=== PATIENT | male | born 1960 | race Caucasian/White ===

== ENCOUNTER 2022-11-03 17:10 | Emergency (ER) | payer OTHER, SELFPAY ==
[2022-11-03 17:34] VITALS: BP 117/72; PULSE 108; RESP 18; TEMP 36.7; O2SAT 94; BMI 28.3
--- NOTE | 2022-11-03 17:34 | ED.GENADULT ---
HPI - General Adult General Stated complaint: Insect bite on back Related Data Allergies Allergy/AdvReac Type Severity Reaction Status Date / Time No Known Allergies Allergy Verified 11/03/22 17:33 Course Course Course Narrative: This is an RME: Additional HPI, ROS, PE not included below will be deferred to primary provider. This is a 61-year-old male, with a past medical history of colon cancer not currently on chemotherapy (last treatment Apr 2022), presenting to the emergency department for evaluation insect bite to his right upper shoulder. Large, draining abscess vs cellulitis to right upper shoulder. VSS. Patient believes that he was bit by something and over the course of this last week it has been increasing in size, pain, redness and now is draining. Plan: obtain basic labs
--- NOTE | 2022-11-03 19:19 | MHC.EDTECH ---
PATIENT BLOOD DRAWN AND SENT TO LAB .
[2022-11-03 19:25] LABS: MANUAL DIFF FLAG NO
[2022-11-03 19:33] LABS: Basophils Percent Auto 0.4 % (0-2); Eosinophils Absolute Auto 0.1 X10*3/uL (0.0-0.4); Hematocrit 35.7 % (42.0-52.0); Hemoglobin 11.5 g/dl (14.0-18.0); Imm Gran Abs Auto 0.13 X10*3/uL (0.00-0.03); Imm Gran Pct Auto 1.8 % (0.0-0.4); Lymphocytes Absolute Auto 1.2 X10*3/uL (1.2-4.9); Lymphocytes Percent Auto 16.3 % (20-40); Mean Corpuscular HGB Conc 32.2 g/dl (31.0-36.0); Mean Corpuscular Hemoglobin 28.2 pg (27.0-33.0); Mean Corpuscular Volume 87.5 fL (80.0-98.0); Mean Platelet Volume 10.6 fL (9.4-12.4); Monocytes Absolute Auto 1.2 X10*3/uL (0.1-1.2); Monocytes Percent Auto 16.6 % (2-11); Neutrophils Absolute Auto 4.4 x10*3/uL (2.0-8.3); Neutrophils Percent Auto 62.9 % (45-73); Platelet Count 247 X10*3/uL (160-400); Red Blood Count 4.08 X10*6/uL (4.60-5.80); Red Cell Distribution Width 16.4 % (11.0-16.0)
[2022-11-03 19:38] LABS: Alanine Aminotransferase 22 U/L (0-40); Alkaline Phosphatase 57 U/L (39-117); Anion Gap 16 (12-20); Aspartate Amino Transferase 17 U/L (5-37); Bilirubin Direct < 0.2 mg/dL (0.0-0.5); Bilirubin Total 0.1 mg/dL (0.0-1.0); Blood Urea Nitrogen 26 mg/dL (9-16); Calcium 9.8 mg/dL (8.4-10.2); Carbon Dioxide 25 mmol/L (22-29); Chloride 106 mmol/L (96-108); Creatinine Clr Calc Pharmacy 83.6; Estimated Glomerular Filt Rate > 60; Glucose Random 123 mg/dL (60-115); Potassium 3.2 mmol/L (3.3-5.1); Sodium 144 mmol/L (135-145); Total Protein 6.9 g/dL (6.5-8.0)
--- NOTE | 2022-11-03 20:30 | ED.GENADULT ---
HPI - General Adult General Chief complaint: General Medical Stated complaint: Insect bite on back Time Seen by Provider: 11/03/22 20:04 History of Present Illness HPI narrative: Patient is a 61-year-old male with a history of colon cancer in the remote past. No history of diabetes. Had a insect bite to the right shoulder area. 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 Been sitting on that home. Notice increasing redness and discharge home the wound. Came to the ED for further evaluation. No fever no chills. No systemic complaints. Positive drainage from the wound. Symptoms been ongoing for the last week. Related Data Previous Rx's Medication Instructions Recorded doxycycline hyclate 100 mg capsule 100 mg PO BID cough 7 days #14 caps 11/03/22 Allergies Allergy/AdvReac Type Severity Reaction Status Date / Time No Known Allergies Allergy Verified 11/03/22 17:33 Review of Systems Review of Systems: Positive redness, positive discharge from a wound to the right shoulder PMFSH Past Medical History Attestation statement: The following information was validated with the patient. Social History Social History Advance Directives: No Advance Directives Information Provided: Yes Physical Exam ED Vital Signs: Vital Signs - 24 hr 11/03/22 17:34 Temperature 98.1 F Pulse Rate 108 H Respiratory Rate 18 Blood Pressure 117/72 Pulse Oximetry 94 Oxygen Delivery Method Room Air BMI result Body Mass Index 28.3 Appearance: Alert. Oriented X3. No acute distress. Eyes: Pupils equal, round and reactive to light. ENT: Pharynx normal. Neck: Normal inspection. Neck supple. No lymph nodes noted. No crepitus CVS: Normal heart rate and rhythm. Pulses normal. Normal S1 and S2 Respiratory: No respiratory distress. Breath sounds normal. No Wheezing. No rales Abdomen: Soft and nontender. No rigidity. No distention. good BS x4 Skin: Positive 4 cm x 5 cm red warm lesion with purulence discharge noted in the right upper back. Slightly warm to touch. Extremities: No lower extremity edema. Neurovascular intact to all extremities. No Lacerations. No Rash Neuro: Oriented X 3. No motor deficit. No sensory deficit. Moving all extermities. No slurred speech Medical Decision Making Medical Decision Making MDM Narrative: Positive history of insect bite now has gotten worse. Patient claimed is discharged from the wound. More redness. Not healing. Presented to the ED. He is not diabetic. There is no fever no chills. No chest pain. No systemic complaints. No allergies. Will start patient on doxycycline. Asked patient to use sunscreens. Close follow-up on an outpatient basis in the wound center. In stable condition. There is no area of fluctuance noted. The wound is clearly draining purulence material. No need to I and D at this point. Differential Diagnosis Cellulitis, abscess Lab Data MDM Lab Attestation statement: I reviewed the patient's lab results. 11/03/22 19:19 11/03/22 19:19 Labs: Lab Results 11/03/22 11/03/22 Range/Units 19:19 19:19 WBC 7.0 (4.8-10.8) X10*3/uL RBC 4.08 L (4.60-5.80) X10*6/uL Hgb 11.5 L (14.0-18.0) g/dl Hct 35.7 L (42.0-52.0) % MCV 87.5 (80.0-98.0) fL MCH 28.2 (27.0-33.0) pg MCHC 32.2 (31.0-36.0) g/dl RDW 16.4 H (11.0-16.0) % Plt Count 247 (160-400) X10*3/uL MPV 10.6 (9.4-12.4) fL Immature Gran % (Auto) 1.8 H (0.0-0.4) % Neut % (Auto) 62.9 (45-73) % Lymph % (Auto) 16.3 L (20-40) % [place] % (Auto) 16.6 H (2-11) % Eos % (Auto) 2.0 (0-4) % Baso % (Auto) 0.4 (0-2) % Lymph # (Auto) 1.2 (1.2-4.9) X10*3/uL [place] # (Auto) 1.2 (0.1-1.2) X10*3/uL Eos # (Auto) 0.1 (0.0-0.4) X10*3/uL Baso # (Auto) 0.0 (0.0-0.2) X10*3/uL Abs Immat Gran (auto) 0.13 H (0.00-0.03) X10*3/uL Absolute Neuts (auto) 4.4 (2.0-8.3) x10*3/uL Absolute Nucleated RBC 0.000 (0.0-0.012) X10*3/uL Nucleated RBC % (auto) 0.0 (0.0-0.2) /100WBC Sodium 144 (135-145) mmol/L Potassium 3.2 L (3.3-5.1) mmol/L Chloride 106 (96-108) mmol/L Carbon Dioxide 25 (22-29) mmol/L Anion Gap 16 (12-20) BUN 26 H (9-16) mg/dL Creatinine 0.97 (0.5-1.4) mg/dL Estim Creat Clear Calc 83.6 Estimated GFR > 60 Random Glucose 123 H (60-115) mg/dL Calcium 9.8 (8.4-10.2) mg/dL Total Bilirubin 0.1 (0.0-1.0) mg/dL Direct Bilirubin < 0.2 (0.0-0.5) mg/dL AST 17 (5-37) U/L ALT 22 (0-40) U/L Alkaline Phosphatase 57 (39-117) U/L Total Protein 6.9 (6.5-8.0) g/dL Albumin 4.0 (3.5-5.0) g/dL Independent Historian Clinical information obtained from an independent historian. History obtained from or confirmed by: Spouse Chronic Conditions History of colon cancer Discharge Plan Discharge Clinical Impression: Cellulitis Patient Disposition: Home, Self-Care Instructions: Cellulitis (DC), Warm Compress or Soak (ED) Prescriptions: New doxycycline hyclate 100 mg capsule 100 mg PO BID 7 Days Qty: 14 0RF Referrals: [facility] [Provider Group] - 11/05/22 Physician,Vikas J [Primary Care Provider] - 11/05/22
[2022-11-03] MEDS: Doxycycline Monohydrate 100 MG CAPSULE PO (20:36)
== END 2022-11-03 20:47 | disposition home or self-care (01) ==
PROVIDERS: Physician Assistant Medical; Emergency Provider Emergency Medicine Emergency Medical Services
DX: L03.113 Cellulitis of right upper limb (principal); M25.511 Pain in right shoulder
CPT/HCPCS: 36415; 80048; 80076; 85025; 99283

== ENCOUNTER 2022-11-18 08:02 | Outpatient (RCR) | payer OTHER, SELFPAY | END 2023-01-12 14:35 | disposition home or self-care (01) | LOC: HO.WCC 08:02 | PROVIDERS: Visit Provider Surgery | DX: L72.3 Sebaceous cyst (principal); I10 Essential (primary) hypertension; G62.9 Polyneuropathy, unspecified; F17.290 Nicotine dependence, other tobacco product, uncomplicated; Z79.2 Long term (current) use of antibiotics; Z79.899 Other long term (current) drug therapy | CPT/HCPCS: 99213 ==